=== PATIENT | female | born 1975 | race Caucasian/White ===

== ENCOUNTER 2018-05-14 10:37 | Day surgery (SDC) | payer OTHER ==
[2018-05-14] MEDS: NS 1,000 ML IV (11:00)
[2018-05-14] MEDS ORDERED: PROPOFOL 200 MG/20 ML VIAL As Ordered ×3 (11:41→12:14)
== END 2018-05-14 13:00 | disposition home or self-care (01) ==
LOC: M OPP 10:37
DX: K64.0 First degree hemorrhoids (principal); R10.30 Lower abdominal pain, unspecified; K62.5 Hemorrhage of anus and rectum; R19.4 Change in bowel habit; K44.9 Diaphragmatic hernia without obstruction or gangrene; R10.13 Epigastric pain; K21.9 Gastro-esophageal reflux disease without esophagitis; I10 Essential (primary) hypertension; F41.9 Anxiety disorder, unspecified; F32.9 Major depressive disorder, single episode, unspecified; K29.50 Unspecified chronic gastritis without bleeding; Z79.891 Long term (current) use of opiate analgesic; Z79.899 Other long term (current) drug therapy; Z88.8 Allergy status to other drugs, medicaments and biological substances; Z98.51 Tubal ligation status; Z87.891 Personal history of nicotine dependence
CPT/HCPCS: 45380

== ENCOUNTER 2018-12-07 17:29 | Emergency (ER) | payer OTHER ==
[~2018-12-07] VITALS: Ht 154.9 cm; Wt 63.6 kg
[~2018-12-07 17:29] MED LIST: CYMB60CA3 PO; NORV5TAB PO; OXYC-517 PO
[2018-12-07] MEDS ORDERED: PROZ40CA PO (17:34)
[2018-12-07] MEDS ORDERED: TRAZ-186 PO (17:34)
[2018-12-07 18:29] VITALS: BP 140/91
[2018-12-07] MEDS ORDERED: NORCO, ANEXSIA 5/325MG TABLET (HYDROcodone/ACETAMINOPHEN) PO ONE (18:30)
--- NOTE | 2018-12-07 19:14 | REP ---
LEFT WRIST COMPLETE: 12/07/2018. Clinical history: Trauma. Prior ORIF for fracture. Findings: Plate and screw fixation is noted on the volar aspect of the distal radius with metaphyseal plate and six screws with two screws in the proximal end of the plate along the distal shaft of the radius. No hardware failure. No screws extend beyond the articular surface of the radius. There is an ununited avulsion of the ulnar styloid, old. Carpal bones and their joint spaces are preserved. I see no subluxation or dislocation of the wrist. Metacarpals and MCP joints as well as their CMC joints visible grossly intact. Old healed and remodeled fracture of the proximal shaft of the first metacarpal. Nothing acute. Impression: 1. No evidence of acute fracture. There is an old ORIF of the distal radial fracture with hardware plate and screws intact and an old ulnar styloid avulsion, ununited. 2. Some degenerative changes wrist and metacarpal lesion and their joints, no acute fracture. Electronically Signed by Jasiel Dickerson MD 12/08/2018 01:15 P
== END 2018-12-07 18:34 | disposition home or self-care (01) ==
LOC: M ED 17:29
DX: S69.92XA Unspecified injury of left wrist, hand and finger(s), initial encounter (principal); W00.0XXA Fall on same level due to ice and snow, initial encounter; Y92.018 Other place in single-family (private) house as the place of occurrence of the external cause; I10 Essential (primary) hypertension; F33.9 Major depressive disorder, recurrent, unspecified; F41.9 Anxiety disorder, unspecified; Z79.899 Other long term (current) drug therapy; Z88.5 Allergy status to narcotic agent; Z88.8 Allergy status to other drugs, medicaments and biological substances; F17.210 Nicotine dependence, cigarettes, uncomplicated

== ENCOUNTER → 2019-01-23 | Outpatient (CLI) | payer OTHER ==
[~2019-01-23] MED LIST changes: +PROZ40CA PO; +TRAZ-186 PO
--- NOTE | 2019-01-23 16:10 | REP ---
Right lower extremity Duplex Doppler venous ultrasound: Real time compression and duplex Doppler interrogation of the right lower extremity deep venous system is performed. The right common femoral, superficial femoral and popliteal veins are fully compressible with transducer pressure and demonstrate normal spontaneous and phasic flow, without evidence of deep venous thrombosis. Impression: No evidence of deep venous thrombosis of the right lower extremity femoral popliteal venous system. Note is made of a superficial venous thrombosis in the lateral mid calf. Electronically Signed by Pelon Brown MD 01/23/2019 04:02 P
== END ==
LOC: M RAD 14:58
PROVIDERS: ATTEND Physician Assistant
DX: M79.661 Pain in right lower leg (principal); I82.811 Embolism and thrombosis of superficial veins of right lower extremity

== ENCOUNTER 2019-02-12 23:58 | Emergency (ER) | payer OTHER ==
[~2019-02-12] VITALS: Ht 154.9 cm; Wt 64.1 kg
[2019-02-12 23:59] VITALS: BP 125/81
[2019-02-13] MEDS ORDERED: KLON0.5T PO (00:04)
[2019-02-13] MEDS ORDERED: dexameTHASONE 20 MG/5 ML VIAL (J1100) IV ONE (01:45)
[2019-02-13] MEDS ORDERED: LIDOCAINE VISCOUS 2% SOLN 15ML UDC SS ONE (01:45)
[2019-02-13 02:01] LABS: BASO % 0.5 % (0.0-1.0); EOS # 0.1 10^3/uL (0.0-0.50); EOS % 2.3 % (0.0-3.0); HEMOGLOBIN 12.3 g/dl (12.0-15.5); LYMPH # 2.2 10^3/uL (1.5-4.5); LYMPH % 36.3 % (24.0-44.0); MEAN CORPUSCULAR HEMOGLOBIN 31.8 pg (27.0-33.0); MEAN CORPUSCULAR HGB CONC 33.2 g/dl (32.0-36.5); MEAN CORPUSCULAR VOLUME 95.6 fl (80.0-96.0); MONO # 0.4 10^3/uL (0.0-0.8); NEUTROPHILS # 3.3 10^3/uL (1.8-7.7); NEUTROPHILS % 53.6 % (36.0-66.0); PLATELET COUNT, AUTOMATED 276 10^3/uL (150-450); RED BLOOD COUNT 3.87 10^6/uL (4.00-5.40); WHITE BLOOD COUNT 6.1 10^3/uL (4.0-10.0)
[2019-02-13 02:19] LABS: ERYTHROCYTE SEDIMENTATION RATE 7 mm/hr (0-20)
[2019-02-13 02:20] LABS: BLOOD UREA NITROGEN 10 MG/DL (7-18); C REACTIVE PROTEIN QUANTITATIV < 0.30 MG/DL (0.00-0.30); CARBON DIOXIDE LEVEL 27 MEQ/L (21-32); CHLORIDE LEVEL 110 MEQ/L (98-107); GLOMERULAR FILTRATION RATE > 60.0 (>58); GLUCOSE, FASTING 88 MG/DL (70-100); SODIUM LEVEL 143 MEQ/L (136-145)
[2019-02-13] MEDS ORDERED: ISOVUE-370 76% 125ML VIAL (Q9967 PER ML) As Ordered ONE (02:21)
[2019-02-13] MEDS ORDERED: IBUPROFEN 100 MG/5 ML SUSP UDC DYE FREE PO ONE (02:45)
--- NOTE | 2019-02-13 04:28 | REPVR ---
EXAM: CT Neck With Contrast EXAM DATE/TIME: 02/13/2019 1:43 AM CLINICAL HISTORY: 43 years old, female; Throat pain/dysphagia TECHNIQUE: Imaging protocol: Axial computed tomography images of the neck with intravenous contrast. Coronal and sagittal reformatted images were created and reviewed. Radiation optimization: All CT scans at this facility use at least one of these dose optimization techniques: automated exposure control; mA and/or kV adjustment per patient size (includes targeted exams where dose is matched to clinical indication); or iterative reconstruction. Contrast material: iso Contrast volume: 75 ml Contrast route: ac COMPARISON: No relevant prior studies available. FINDINGS: Sinuses: The imaged portion of the maxillary sinuses are clear. Nasopharynx: Normal. Oropharynx: There is moderate hypertrophy of the palatine tonsils. No tonsillar or peritonsillar abscess is noted. Hypopharynx: Normal. Larynx: There is asymmetric swelling of the left aryepiglottic fold, which may be inflammatory in nature (image 33 of the axial series 204). The epiglottis is normal in appearance. Retropharyngeal space: Normal. No retropharyngeal fluid collection. Submandibular/Parotid glands: Normal. Glands are normal in size. Thyroid: Normal. No enlarged or calcified nodules. Lymph nodes: There is left level IIa cervical lymphadenopathy, with the largest lymph node measuring 12 mm in short axis. 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 Lungs: The imaged lung apices are clear. Vasculature: The vertebral arteries, common carotid arteries, internal carotid arteries, and external carotid arteries are patent. There is no dissection. Mastoid air cells: Normal as visualized. No mastoid effusion. Bones/joints: There are degenerative changes in the cervical spine, most severe at the C5-C6 level, where there is severe loss of disc height, a broad-based posterior disc osteophyte complex, left greater than right uncovertebral hypertrophy, mild spinal canal stenosis, moderate left neural foraminal stenosis, and mild right neural foraminal stenosis. There is straightening of the normal cervical lordosis. There is no fracture. No bony destructive changes are noted there is no suspicious osteolytic or osteoblastic lesion. Soft tissues: Unremarkable. No soft tissue fluid collection. IMPRESSION: 1. Asymmetric swelling of the left aryepiglottic fold, which may be inflammatory in nature. 2. Left level IIa cervical lymphadenopathy, which may be reactive in nature. 3. C5-C6: Mild spinal canal stenosis, moderate left neural foraminal stenosis, and mild right neural foraminal stenosis. Electronically signed by: Robert Kilgore On 02/13/2019 04:28:19 AM
== END 2019-02-13 04:44 | disposition left against medical advice (07) ==
LOC: M ED 23:58
DX: J02.9 Acute pharyngitis, unspecified (principal)
CPT/HCPCS: 36415; 70491; 80048; 85025; 85652; 86140; 87880; 96372; 96374; 99284; J1100; Q9967

== ENCOUNTER → 2019-09-10 | Outpatient (CLI) | payer OTHER ==
[~2019-09-10] MED LIST changes: +KLON0.5T PO
--- NOTE | 2019-09-10 16:52 | REP ---
Four views right thumb: 09/10/2019. Indication: Right thumb trauma. Comparison: None. Findings: There is no acute fracture, subluxation or dislocation. Alignment is within anatomical limits. Soft tissue edema is noted. Impression: No acute fracture. Electronically Signed by Kasi Marlow DO 09/10/2019 04:43 P
== END ==
LOC: M WUC 15:35
PROVIDERS: ATTEND Physician Assistant
DX: S60.011A Contusion of right thumb without damage to nail, initial encounter (principal); X58.XXXA Exposure to other specified factors, initial encounter; Y92.9 Unspecified place or not applicable